=== PATIENT | male | born 2000 | race Caucasian/White ===

== ENCOUNTER 2021-09-26 11:12 | Outpatient (REF) | payer OTHER, SELFPAY ==
[2021-09-26 14:09] LABS: Appearance Urine CLEAR; Color Urine YELLOW; Glucose Urine UA NEG (NEG); Leukocyte Esterase Urine NEG (NEG); Nitrite Urine NEG (NEG); Urine Blood NEG (NEG); Urine Ketones NEG (NEG); Urine Protein NEG (NEG-TRACE)
[2021-09-26 14:23] LABS: Alanine Aminotransferase 27 U/L (0-40); Albumin Level 4.8 g/dL (3.5-5.0); Alkaline Phosphatase 114 U/L (39-117); Anion Gap 12 (12-20); Aspartate Amino Transferase 32 U/L (5-37); Bilirubin Total 1.3 mg/dL (0.0-1.0); Blood Urea Nitrogen 15 mg/dL (9-16); Carbon Dioxide 28 mmol/L (22-29); Chloride 103 mmol/L (96-108); Cholesterol 176 mg/dL; Estimated Glomerular Filt Rate > 60; Glucose Fasting 83 mg/dL (60-99); HDL Cholesterol 46 mg/dL; LDL Cholesterol Calculated 118 mg/dl; Potassium 4.3 mmol/L (3.3-5.1); Sodium 139 mmol/L (135-145); Total Protein 7.6 g/dL (6.5-8.0); Triglycerides 63 mg/dL
[2021-09-26 14:44] LABS: TSH reflex Free T4 0.98 uIU/mL (0.32-4.0)
== END 2021-09-26 11:13 | disposition home or self-care (01) ==
LOC: HO.HMGCLDS 11:12
PROVIDERS: Visit Provider Nurse Practitioner Family
DX: Z00.00 Encounter for general adult medical examination without abnormal findings (principal)
CPT/HCPCS: 36415; 80053; 80061; 81003; 84443

== ENCOUNTER 2022-07-25 14:03 | Outpatient (REF) | payer OTHER, SELFPAY ==
[2022-07-25 14:53] LABS: Influenza A PCR NEGATIVE (Negative); Influenza B PCR NEGATIVE (Negative); Resp Syncy Virus RNA Qual PCR NEGATIVE (Negative); SARS COV2 PCR INHOUSE NEGATIVE (Negative)
== END 2022-07-25 14:04 | disposition home or self-care (01) ==
LOC: HO.LNP 14:03
PROVIDERS: Visit Provider Physician Assistant
DX: Z20.822 Contact with and (suspected) exposure to COVID-19 (principal); B34.9 Viral infection, unspecified; J02.9 Acute pharyngitis, unspecified
CPT/HCPCS: 0241U

== ENCOUNTER 2024-02-04 10:51 | Outpatient (REF) | payer OTHER, SELFPAY ==
[2024-02-04 13:12] LABS: MANUAL DIFF FLAG NO
[2024-02-04 13:14] LABS: Appearance Urine Clear; Color Urine Yellow; Glucose Urine UA Negative (Negative); Leukocyte Esterase Urine Negative (Negative); Nitrite Urine Negative (Negative); Specific Gravity - Urine <= 1.005 (1.005-1.025); Urine Blood Negative (Negative); Urine Ketones Negative (Negative); Urine Protein Negative (Neg-Trace)
[2024-02-04 13:28] LABS: Basophils Absolute Auto 0.1 X10*3/uL (0.0-0.2); Basophils Percent Auto 0.7 % (0-2); Eosinophils Absolute Auto 0.1 X10*3/uL (0.0-0.4); Eosinophils Percent Auto 0.7 % (0-4); Hematocrit 43.4 % (42.0-52.0); Hemoglobin 16.2 g/dl (14.0-18.0); Imm Gran Abs Auto 0.02 X10*3/uL (0.00-0.03); Imm Gran Pct Auto 0.3 % (0.0-0.4); Lymphocytes Absolute Auto 1.7 X10*3/uL (1.2-4.9); Lymphocytes Percent Auto 24.9 % (20-40); Mean Corpuscular HGB Conc 37.3 g/dl (31.0-36.0); Mean Corpuscular Hemoglobin 30.1 pg (27.0-33.0); Mean Corpuscular Volume 80.7 fL (80.0-98.0); Mean Platelet Volume 9.9 fL (9.4-12.4); Monocytes Absolute Auto 0.4 X10*3/uL (0.1-1.2); Monocytes Percent Auto 5.7 % (2-11); Neutrophils Absolute Auto 4.7 x10*3/uL (2.0-8.3); Neutrophils Percent Auto 67.7 % (45-73); Platelet Count 291 X10*3/uL (160-400); Red Blood Count 5.38 X10*6/uL (4.60-5.80)
[2024-02-04 13:45] LABS: Alanine Aminotransferase 22 U/L (0-40); Albumin Level 4.9 g/dL (3.5-5.0); Alkaline Phosphatase 84 U/L (39-117); Anion Gap 13 (12-20); Aspartate Amino Transferase 19 U/L (5-37); Blood Urea Nitrogen 11 mg/dL (9-16); Calcium 10.1 mg/dL (8.4-10.2); Carbon Dioxide 23 mmol/L (22-29); Chloride 105 mmol/L (96-108); Cholesterol 201 mg/dL (<200); Estimated Glomerular Filt Rate > 60; Glucose Random 91 mg/dL (60-115); HDL Cholesterol 47 mg/dL (>40); LDL Cholesterol Calculated 139 mg/dL (<100); Potassium 3.4 mmol/L (3.3-5.1); Sodium 138 mmol/L (135-145); Total Protein 7.7 g/dL (6.5-8.0); Triglycerides 77 mg/dL (<150)
[2024-02-04 14:02] LABS: TSH reflex Free T4 0.81 uIU/mL (0.32-4.0)
[2024-02-04 14:03] LABS: Vitamin B12 516 pg/mL (200-900)
[2024-02-08 15:19] LABS: Vitamin D 25-OH, D2 <4 ng/mL; Vitamin D 25-OH, D3 30 ng/mL; Vitamin D 25-OH, Total 30 ng/mL (30-100)
[2024-02-09 14:52] LABS: Vitamin B6 71.3 ng/mL (2.1-21.7)
== END 2024-02-04 10:52 | disposition home or self-care (01) ==
LOC: HO.HMGCLDS 10:51
PROVIDERS: Visit Provider Nurse Practitioner Primary Care
DX: Z13.0 Encounter for screening for diseases of the blood and blood-forming organs and certain disorders involving the immune mechanism (principal); Z13.29 Encounter for screening for other suspected endocrine disorder; Z13.220 Encounter for screening for lipoid disorders; Z13.21 Encounter for screening for nutritional disorder; Z91.89 Other specified personal risk factors, not elsewhere classified; Z13.89 Encounter for screening for other disorder
CPT/HCPCS: 36415; 80053; 80061; 81003; 82306; 82607; 84207; 84443; 85025

== ENCOUNTER 2024-02-25 08:53 | Outpatient (AMB) | payer OTHER, SELFPAY ==
--- NOTE | 2024-02-25 08:55 | MHC.PC.OV ---
Vital Signs 02/25/24 08:57 Height 5 ft 11.75 in Weight 178 lb BMI 24.3 BP 118/74 Blood Pressure Location Lt brachial Position Sitting Pulse 90 Pulse Source Pulse Oximeter Pulse Oximetry (%) 99 Oxygen Delivery Method Room Air Intake Visit Reasons: PE Intake Note: Pt is here for his annual PE. Allergies No Known Allergies [No Known Allergies*] Allergy (Verified 02/25/24 09:08) Medication List - Last Reconciled 02/25/24 by WES Garrett biotin 2,500 mcg PO DAILY Tobacco use date assessed: 02/25/24 Dental Screening Dental Screen Date: 02/25/24 Did you have a dental visit in the last 12 months?: Yes Did you have a dental problem in the last 6 months where you did not have access to dental care?: No Was dental information given to patient?: Patient has dentist HPI HPI Comments History of Present Illness Details This is a 23-year-old male who I am meeting for the 1st time in for physical exam. Patient is up-to-date with Tdap next due in 2031. [facility] Social History Housing: House Patient Tobacco Use Status: Never used Tobacco e-Cigarette/Vaping Use: Former Use Date or number of years quit: 2 years ago Second Hand Smoke Exposure: No service: No Current occupational status: employed Current occupation: [employer] Current occupational exposures/hazards: No Cognitive needs: No Hearing needs: No Vision needs: No Questionnaire PHQ-9 Over the last 2 weeks, how often have you been bothered by any of the following problems? 1. Little interest or pleasure in doing things: not at all 2. Feeling down, depressed, or hopeless: not at all 3. Trouble falling or staying asleep, or sleeping too much: not at all 4. Feeling tired or having little energy: not at all 5. Poor appetite or overeating: not at all 6. Feeling bad about yourself - or that you are a failure or have let yourself or your family down: not at all 7. Trouble concentrating on things, such as reading the newspaper or watching television: not at all 8. Moving or speaking so slowly that other people could have noticed. Or the opposite - being so fidgety or restless that you have been moving around a lot more than usual: not at all 9. Thoughts that you would be better off or of hurting yourself in some way: not at all Total score: 0 Depression Screening Interpretation: Negative Depression Screening Done: Yes 27739 - PHQ-9 Billing: Yes Source: Developed by Drs. Himanshu Mcdonald, Carmela Sparks, Buddy Knox and colleagues, with an educational megan from [employer]. Thrive Questionnaire Date Thrive assessed: 02/25/24 I am a: Patient What is your living situation today?: I have a steady place to live Within the past 12 months, did the food you bought not last and you didn't have the money to get more?: Never true Within the past 12 months, did you worry whether your food would run out before you got money to buy more?: Never true Do you have trouble paying for medicines?: No Do you have trouble getting transportation to medical appointments?: No Do you have trouble paying your heating and electricity bill?: No Do you have trouble taking care of your child, family member or friend?: No Do you have trouble with day-to-day activities such as bathing, preparing meals, shopping, managing finances, etc.?: No Are you currently unemployed and looking for a job?: No Are you interested in more education?: No Please select the resources that you would like help with: Housing/Usp Currently or been in a relationship where the following occur: No concerns reported THRIVE Score: 0 AUDIT C Alcohol Use Questionnaire (AUDIT-C) 1. How often do you have a drink containing alcohol?: 2-4 times a month 2. How many drinks containing alcohol do you have on a typical day when you are drinking?: 1 or 2 3. How often do you have six or more drinks on one occasion?: Less than monthly Total Score: 3 Score Reviewed/Action Taken: Yes PEPE-7 AMB Questionnaire PEPE-7 Date PEPE - 7 assessed: 02/25/24 Feeling nervous, anxious, or on edge: 0 = Not at all Not being able to stop or control worryin = Not at all Worrying too much about different things: 0 = Not at all Trouble relaxin = Not at all Being so restless that it is hard to sit still: 0 = Not at all Becoming easily annoyed or irritable: 0 = Not at all Feeling afraid as if something awful might happen: 0 = Not at all Total PEPE-7 score (0-4 normal; 5-9 mild; 10-14 moderate; 15-21 severe): 0 Source: Developed by Drs. Himanshu Mcdonald, Carmela Sparks, Buddy Knox and colleagues, with an educational megan from [employer]. PEPE-7 Assessment Billing PEPE-7 Assessment Tool: PEPE-7 Assessment 97439 Review of Systems Const All systems reviewed & are unremarkable except as noted in HPI and below Physical exam (Primary Care) Vital Signs: Last Vital Signs Pulse 90 02/25/24 08:57 BP 118/74 02/25/24 08:57 Pulse Ox 99 02/25/24 08:57 Oxygen Delivery Method Room Air 02/25/24 08:57 BMI result Body Mass Index 24.3 Tobacco/Smoking Status: Tobacco use Status Tobacco use date assessed 02/25/24 02/25/24 09:01 Patient Tobacco Use Status Never used Tobacco 02/25/24 09:01 e-Cigarette/Vaping Use Former Use 02/25/24 09:01 PHQ-9: PHQ-9 Score PHQ-9: Total score 0 02/25/24 09:01 Depression Screening Interpretation: Negative Thrive Assessment: Date of Thrive Assessment Date Thrive assessed 02/25/24 02/25/24 09:01 Currently or been in a relationship where the following occur: No concerns reported Const Other: Appearance: Alert.? Oriented X3.? No acute distress.? Head: Normocephalic, atraumatic, no step-offs or deformities Eyes: Pupils equal, round and reactive to light.? ENT: Pharynx normal.? Neck: Normal inspection.? Neck supple.? CVS: Normal heart rate and rhythm.? Pulses normal.? Respiratory: No respiratory distress.? Breath sounds normal.? Abdomen: Soft and nontender.? Skin: Skin warm and dry.? Normal skin color.? Normal skin turgor.? Extremities: No lower extremity edema.? No calf ttp. 5/5 strength to bilateral upper and lower extremities Back: No midline tenderness, no C-spine tenderness, full range of motion, no CVA tenderness bilaterally Neuro: Oriented X 3.? No motor deficit.? No sensory deficit. CN 2-12 intact Results Reviewed Results Reviewed: Sodium 138 135-145 mmol/L Potassium 3.4 3.3-5.1 mmol/L CL 105 96-108 mmol/L CO2 23 22-29 mmol/L Gap 13 12-20 BUN 11 9-16 mg/dL Creat 0.89 0.5-1.4 mg/dL EGFR > 60 NOTE: For -[place] individuals, multiply the result by 1.210. Chronic Kidney Disease: Estimated GFR < 60 mL/min/1.73m2 Severe Kidney Disease: Estimated GFR < 15 mL/min/1.73m2 Glucose, Random 91 60-115 mg/dL CA 10.1 8.4-10.2 mg/dL Total Bili 1.0 0.0-1.0 mg/dL AST (GOT) 19 5-37 U/L ALT (GPT) 22 0-40 U/L Protein, Total 7.7 6.5-8.0 g/dL Alb 4.9 3.5-5.0 g/dL Triglyceride 77 <150 mg/dL Desirable Triglyceride: less than 150 mg/dL Borderline High Triglyceride 150-199 mg/dL High Triglyceride: 200-499 mg/dL Very High Triglyceride: greater than or equal to 5OO mg/dL Cholesterol 201 H <200 mg/dL Desirable Cholesterol: less than 200 mg/dL Borderline High Cholesterol: 200-239 mg/dL High Cholesterol: greater than 239 mg/dL LDL Calculated 139 H <100 mg/dL Desirable LDL: less than 100 mg/dL Near Optimal/Above Optimal LDL: 110-129 mg/dL Borderline High LDL: 130-159 mg/dL High LDL: 160-189 mg/dL Very High LDL: greater than or equal to 190 mg/dL HDL 47 >40 mg/dL Desirable HDL: greater than 40 mg/dL Note: This HDL assay may give artificially low results in patients with liver disease. Alk Phos 84 39-117 U/L TSH 0.81 0.32-4.0 uIU/mL Assessment and Plan Assessment & Plan (1) Physical exam: Comment: He is up-to-date with Tdap. Has been educated about proper diet and exercise. Has been educated about the importance of self-testicular exams at home. Code(s): Z00.00 - Encounter for general adult medical examination without abnormal findings (2) Excessive vitamin B6 intake: Comment: Will redraw B6 in 3 months. Code(s): E67.8 - Other specified hyperalimentation (3) Dyslipidemia: Comment: Patient will try to improve with increased diet and exercise. Code(s): E78.5 - Hyperlipidemia, unspecified Plan: Follow-up 1 year for physical exam Orders: Orders Vitamin D 25-OH (D2 and D3) 02/04/24 Z13.21 - Encounter for screening for nutritional disorder UA CC w/rflx Micro + Cult 02/04/24 Z13.89 - Encounter for screening for other disorder TSH reflex Free T4 02/04/24 Z13.29 - Encounter for screening for other suspected endocrine disorder Lipid Panel 02/04/24 Z13.220 - Encounter for screening for lipoid disorders Comprehensive Met. Panel 02/04/24 Z91.89 - Other specified personal risk factors, not elsewhere classified Vitamin B6 02/04/24 Z13.21 - Encounter for screening for nutritional disorder Vitamin B12 02/04/24 Z13.21 - Encounter for screening for nutritional disorder Complete Blood Count Auto Diff 02/04/24 Z13.0 - Encounter for screening for diseases of the blood and blood-forming organs and certain disorders involving the immune mechanism Vitamin B6 3 Months E67.8 - Other specified hyperalimentation Medications: Discontinued amoxicillin-pot clavulanate 875-125 mg Discontinued Reason: Patient Completed Course 1 tab PO Q12H 7 days 14 tabs 0RF Coding Level of Care Code Est Pt Level 3 (74831) Est Pt Prev Care 18-39y(55927) Diagnoses Physical exam Z00.00 Excessive vitamin B6 intake E67.8 Dyslipidemia E78.5 Additional Codes PEPE-7 Assessment Billing - PEPE-7 Assessment Tool: PEPE-7 Assessment 07372 ([id number]) Time Spent (min) 28
[2024-02-25 08:57] VITALS: BP 118/74; PULSE 90; O2SAT 99; BMI 24.3
== END 2024-02-25 09:22 | disposition home or self-care (01) ==
PROVIDERS: PCP Nurse Practitioner Primary Care; Visit Provider Nurse Practitioner Primary Care
DX: Z00.00 Encounter for general adult medical examination without abnormal findings (principal); E67.8 Other specified hyperalimentation; E78.5 Hyperlipidemia, unspecified
CPT/HCPCS: 99395

== ENCOUNTER 2025-03-11 08:22 | Outpatient (AMB) | payer OTHER, SELFPAY ==
[2025-03-11 08:29] VITALS: BP 120/84; PULSE 76; RESP 16; TEMP 36.8; O2SAT 99; BMI 25.0
--- NOTE | 2025-03-11 08:29 | A.OFFPC_ITS ---
Vital Signs 03/11/25 08:29 Height 5 ft 11.5 in Weight 182 lb BMI 25.0 BP 120/84 Blood Pressure Location Lt brachial Position Sitting Respiration 16 Pulse 76 Pulse Source Pulse Oximeter Temp 98.2 F Temp Source Oral Pulse Oximetry (%) 99 Oxygen Delivery Method Room Air Intake Visit Reasons: Transfer from [facility] Office Employee Required: No Accompanied by: Self / Same As Patient Allergies No Known Allergies (No Known Allergies*) Allergy (Verified 03/11/25 09:06) Medication List - Last Reconciled 03/11/25 by WES Dykes- biotin 2,500 mcg PO DAILY Tobacco use date assessed: 02/25/24 Dental Screening Dental Screen Date: 02/25/24 HPI Transfer from [facility] HPI Details History of Present Illness The patient is a 24-year-old male presenting for a physical examination. He is currently attending college and working in a couple of jobs, indicating a fairly active lifestyle. He denies experiencing any chest pain, dyspnea, abdominal pain, hematochezia, constipation, or diarrhea. Additionally, he denies any suicidal or homicidal ideation. Health Maintenance Social History - Education: Currently attending college - Employment: Working in a couple of job s - Activity level: Fairly active lifestyl e Review of Systems - Cardiovascular: Denies chest pain - Respiratory: Denies dyspnea - Gastrointestinal: Denies abdominal christiana n, hematochezia, constipation, diarrhea - Psychiatric: Denies suicidal ideation, homicidal ideation Physical Exam General: Cooperative, healthy appearing, comfortable, no acute distress and well developed Orientation: Patient oriented x3 Limitations: No limitations Head: Normal to inspection Ears: Hearing grossly normal bilaterally Nose: Normal external nose present Face and sinus: Normal facial exam Eyes: Appearance normal, both eyes and all related structures Neck: Normal visual inspection and Yes full ROM Respiratory: Normal respiratory effort and able to speak in complete sentences. Clear to auscultation bilaterally Cardiovascular: Regular rate and rhythm. Normal S1 and S2 GI: Normal to inspection. Soft to palpation and nontender : testicles without masses/lesions and no hernias appreciated Skin: No rashes or lesions noted Neuro: Patient oriented x3 Extremities: Normal to inspection Results Plan The patient was encouraged to undergo laboratory tests in the near future to monitor his health status. A follow-up appointment is scheduled for one year to reassess his health and ensure continued wellness. Discussion Notes I discussed with the patient the importance of regular health monitoring through laboratory tests and scheduled a follow-up visit in one year to evaluate his overall health and address any emerging concerns. Patient Instructions - Schedule and complete laboratory tests as advised. - Return for a follow-up visit in one ye [facility] Social History Housing: House Patient Tobacco Use Status: Never used Tobacco e-Cigarette/Vaping Use: Former Use Date or number of years quit: 2 years ago Second Hand Smoke Exposure: No service: No Current occupational status: employed Current occupation: [employer] Current occupational exposures/hazards: No Cognitive needs: No Hearing needs: No Vision needs: No Questionnaire PHQ-9 Over the last 2 weeks, how often have you been bothered by any of the following problems? 1. Little interest or pleasure in doing things: not at all 2. Feeling down, depressed, or hopeless: not at all 3. Trouble falling or staying asleep, or sleeping too much: not at all 4. Feeling tired or having little energy: not at all 5. Poor appetite or overeating: not at all 6. Feeling bad about yourself - or that you are a failure or have let yourself or your family down: not at all 7. Trouble concentrating on things, such as reading the newspaper or watching television: not at all 8. Moving or speaking so slowly that other people could have noticed. Or the opposite - being so fidgety or restless that you have been moving around a lot more than usual: not at all 9. Thoughts that you would be better off or of hurting yourself in some way: not at all Total score: 0 Depression Screening Interpretation: Negative Depression Screening Done: Yes 18755 - PHQ-9 Billing: Yes Source: Developed by Drs. Himanshu Mcdonald, Carmela Sparks, Buddy Knox and colleagues, with an educational megan from [employer]. Thrive Questionnaire Date Thrive assessed: 02/25/24 I am a: Patient What is your living situation today?: I have a steady place to live Within the past 12 months, did the food you bought not last and you didn't have the money to get more?: Never true Within the past 12 months, did you worry whether your food would run out before you got money to buy more?: Never true Do you have trouble paying for medicines?: No Do you have trouble getting transportation to medical appointments?: No Do you have trouble paying your heating and electricity bill?: No Do you have trouble taking care of your child, family member or friend?: No Do you have trouble with day-to-day activities such as bathing, preparing meals, shopping, managing finances, etc.?: No Are you currently unemployed and looking for a job?: No Are you interested in more education?: No Please select the resources that you would like help with: None Currently or been in a relationship where the following occur: No concerns reported THRIVE Score: 0 AUDIT C Alcohol Use Questionnaire (AUDIT-C) 1. How often do you have a drink containing alcohol?: Monthly or less 2. How many drinks containing alcohol do you have on a typical day when you are drinking?: 1 or 2 3. How often do you have six or more drinks on one occasion?: Never Total Score: 1 Score Reviewed/Action Taken: Yes PEPE-7 AMB Questionnaire PEPE-7 Date PEPE - 7 assessed: 03/11/25 Feeling nervous, anxious, or on edge: 0 = Not at all Not being able to stop or control worryin = Not at all Worrying too much about different things: 0 = Not at all Trouble relaxin = Not at all Being so restless that it is hard to sit still: 0 = Not at all Becoming easily annoyed or irritable: 0 = Not at all Feeling afraid as if something awful might happen: 0 = Not at all Total PEPE-7 score (0-4 normal; 5-9 mild; 10-14 moderate; 15-21 severe): 0 Source: Developed by Drs. Himanshu Mcdonald, Carmela Sparsk, Buddy Knox and colleagues, with an educational megan from [employer]. PEPE-7 Assessment Billing PEPE-7 Assessment Tool: PEPE-7 Assessment 68622 Physical exam (Primary Care) Vital Signs: Last Vital Signs Temp 98.2 F 03/11/25 08:29 Pulse 76 03/11/25 08:29 Resp 16 03/11/25 08:29 BP 120/84 03/11/25 08:29 Pulse Ox 99 03/11/25 08:29 Oxygen Delivery Method Room Air 03/11/25 08:29 BMI result Body Mass Index 25.0 Tobacco/Smoking Status: Tobacco use Status Tobacco use date assessed 02/25/24 03/11/25 08:30 Patient Tobacco Use Status Never used Tobacco 03/11/25 08:30 e-Cigarette/Vaping Use Former Use 03/11/25 08:30 PHQ-9: PHQ-9 Score PHQ-9: Total score 0 03/11/25 08:45 Depression Screening Interpretation: Negative Thrive Assessment: Date of Thrive Assessment Date Thrive assessed 02/25/24 03/11/25 08:30 Currently or been in a relationship where the following occur: No concerns reported Coding Level of Care Code New Pt Prev Care 18-39yr(73206 Diagnoses Physical exam Z00.00 Additional Codes PEPE-7 Assessment Billing - PEPE-7 Assessment Tool: PEPE-7 Assessment 18623 ([id number]) PHQ-9 - 93493 - PHQ-9 Billing: Yes ([id number]) Assessment & Plan Assessment & Plan (1) Physical exam: Code(s): Z00.00 - Encounter for general adult medical examination without abnormal findings Category: Medical Plan . Orders: Orders TSH reflex Free T4 Today Z00.00 - Encounter for general adult medical examination without abnormal findings UA CC w/rflx Micro + Cult Today Z00.00 - Encounter for general adult medical examination without abnormal findings Complete Blood Count Auto Diff Today Z00.00 - Encounter for general adult medi malu examination without abnormal findings Comprehensive [place]. Panel Fast Today Z00.00 - Encounter for general adult medical examination without abnormal findings Lipid Panel Today Z00.00 - Encounter for general adult medical examination without abnormal findings
--- OUTSIDE RECORDS SUMMARY | 2025-03-11 08:31 | XMS_ITS | Clinical Summary ---
Author Organization [facility] Address [address] [place] [id number] Phone Care Team Providers Care Dean For Student Affairs Name Role Phone Dipti Nicole MD Primary Care Pro vider Allergies Active Allergy Reactions Criticality Noted Date Comments Environmental Cough 10/01/2018 Grass pollens Medications HYDROcodone-breann taminophen 5-300 MG per tablet take 1 tablet by mouth every 6 to 8 hours if needed for pain Active midazolam 2 MG/ML syrup MEDICATION TO BE GIVEN BY MOUTH BY DENTIST AT THE DENTAL CLINIC FOR ORAL SEDATION. 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 Has difficulties with academic performance 02/10 Attention deficit hyperactivity disorder 015 Elevated EBV antibody titer Overview (10/01/2018): C/w past infection 10/17 Resolved Problems Problem Noted Date Diagnosed Date Resolved Date Costal chondritis 09/22/2018 10/01/2018 Pharyngitis 09/22/2018 10/01/2018 Acne 02/10/2018 06/18/2020 Immunizations Immunization Administration Dates Next Due DTaP 09/08/2004, 2,2000,09/10,2000 HPV, Quadrivalent 05/17/2014,05/13/2013,04/03/20 12 Hep A, ped/adol 05/17/2014,04/03/2012 Hep B, ped/adol 2000,2000,2000 HiB 12/08/2001, 2,06/09/2001,03/11 IPV 09/08/2004, 1,2000,07/20 Influenza, injectable, quadr ivalent, preservative free 09/22/2018(Deferred: Patient Refused) MMR 09/08/2004,11/04/2001 Meningococcal Conj (Menactra) MCV4P 08/08/2016,0 02/20/2011 Pneumococcal Conjugate 12/08/2001,2001,06/09/2001,03/11 Tdap 02/20/2011 Varicella 09/27/2006,06/09/2001 Family History Medical History Relation Name Comments Heart disease (Premature) Maternal Grandfather Heart disease (Premature) Maternal Grandmother Hyperlipidemia Mother Hypertension Other maternal and paternal si Relation Name Status Comments Maternal Grandfather Maternal Grandmother Mother Other maternal and paternal si Social History Tobacco Use Types Packs/Day Years Used Date Smoking Tobacco: Never Smokeless Tobacco: Never Comments:Never Alcohol Use Standard Drinks/Week Comments Never 0 (1 standard drink = 0.6 oz pur e alcohol) Hunger/Food Answer Date Recorded No 05/07/2020 Stable Housing Answer Date Recorded No 05/07/2020 Transportation Concerns Answer Date Rec orded No 05/07/2020 Hazards in Home Answer Date Recorded No 06/26/2020 Financing Utilities Answer Date Recorde d No 06/26/2020 Safety at Home Answer Date Recorded No 06/26/2020 Outside Support Answer Date Recorded No 06/26/2020 Understanding Health Concerns Answer Da te Recorded No 06/26/2020 Financing Health Concerns Answer Date R ecorded No 06/26/2020 Missing School or Work Answer Date Oleksandr rded No 06/26/2020 Sex and Gender Information Value Date Recorded Sex Assigned at Male 06/15/2020 2:54 PM EST Legal Sex Male 12:17 PM EST Gender Identity Male 06/15/2020 2:54 PM EST Sexual Orientation Straight 06/15/2020 2: 54 PM EST Last Filed Vital Signs Vital Sign Reading Time Taken Comments Blood Pressure 108/69 06/15/2020 2:24 PM EST Pulse 96 06/15/2020 2:24 PM EST Temperature 36.7 C (98 F) 06/15/2020 2:24 PM EST Respiratory Rate - - Oxygen Saturation 98% 05/14/2017 12: 00 AM EDT Inhaled Oxygen Concentration - - Weight 72.9 kg (160 lb 12.8 oz) 06/15/2020 2:24 PM EST Height 183.5 cm (6' 0.25 ) 06/15/2020 2:24 PM ES T Body Mass Index 21.66 06/15/2020 2:24 PM EST Plan of Treatment Health Maintenance Due Date Last Done Comments DTaP,Tdap,and Td Vaccines (7 - Td or Tdap) 02/20/2021 02/20/2011, 09/08/2004, 12/08/2001, Additional history exists COVID-19 Vaccine ( season) 2024 03/30/2021 Influenza Vaccines (#1) 2025 Hepatitis B Vaccines Completed 2000, 2000, 2000 HIB Vaccines Completed 12/08/2001, 10/11, 06/09/2001, Additional history exists Pneumococcal Vaccine Completed 12/08/2001, 11/04/2001, 06/09/2001, Additional history exists IPV Vaccines Completed 09/08/2004, 10/10, 2000, Additional history exists MMR Vaccines Completed 09/08/2004, 11/04/2001 Varicella Vaccines Completed 09/27/2006, 06/09/2001 HPV Vaccines Completed 05/17/2014, 09/2012, 04/03/2012 Hepatitis A Vaccines Completed 05/17/2014, 04/03/20 12 Meningococcal Vaccine Completed 08/08/2016, 011 Men B Vaccine Aged Out No longer elig ible based on patient's age to complete this topic Care Teams Dean For Student Affairs Relationship Specialty Start Date End Date Dipti Nicole MD [address] [place] [id number] PCP - General 08/09/17
== END 2025-03-11 09:13 | disposition home or self-care (01) ==
LOC: HO.HMCC 08:23
PROVIDERS: PCP Nurse Practitioner Primary Care; Visit Provider Nurse Practitioner Family
DX: Z00.00 Encounter for general adult medical examination without abnormal findings (principal)

== ENCOUNTER → 2025-03-11 08:22 | Outpatient (BNVA) | payer OTHER, SELFPAY | PROVIDERS: PCP Nurse Practitioner Primary Care; Visit Provider Nurse Practitioner Family | DX: Z00.00 Encounter for general adult medical examination without abnormal findings (principal); Z13.31 Encounter for screening for depression; Z13.39 Encounter for screening examination for other mental health and behavioral disorders | CPT/HCPCS: 96127 ==